=== PATIENT | male | born 1975 | race African-American/Black ===

== ENCOUNTER 2018-12-11 09:44 | Emergency (ER) | payer OTHER ==
[~2018-12-11] VITALS: Ht 172.7 cm; Wt 97.0 kg
[2018-12-11 09:53] VITALS: BP 151/82
== END 2018-12-11 14:36 | disposition left against medical advice (07) ==
LOC: ER 10:15
DX: Z53.21 Procedure and treatment not carried out due to patient leaving prior to being seen by health care provider (principal)
CPT/HCPCS: 93005